=== PATIENT | male | born 2000 | race Two or more races ===

== ENCOUNTER 2020-02-27 14:17 | Outpatient (CLI) | payer OTHER | END 2020-02-27 14:23 | disposition home or self-care (01) | LOC: LAB 14:17 | PROVIDERS: ATTEND General Practice | DX: J11.1 Influenza due to unidentified influenza virus with other respiratory manifestations (principal); R53.81 Other malaise; R05 Cough ==

== ENCOUNTER 2020-02-28 20:24 | Emergency (ER) | payer OTHER ==
[~2020-02-28] VITALS: Ht 165.1 cm; Wt 127.0 kg
== END 2020-02-28 22:48 | disposition home or self-care (01) ==
LOC: ER 20:24
DX: A90 Dengue fever [classical dengue] (principal); Z03.818 Encounter for observation for suspected exposure to other biological agents ruled out

== ENCOUNTER 2021-04-14 09:01 | Emergency (ER) | payer OTHER ==
[~2021-04-14] VITALS: Ht 170.2 cm; Wt 145.1 kg
[2021-04-14] MEDS ORDERED: DICLOFENAC POTA50 MG PO (12:32)
[2021-04-14] MEDS ORDERED: ORPHENADRINE C100 MG PO (12:32)
== END 2021-04-14 12:44 ==
LOC: ER 09:01
DX: S83.8X1A Sprain of other specified parts of right knee, initial encounter (principal); X50.1XXA Overexertion from prolonged static or awkward postures, initial encounter; Y93.67 Activity, basketball; Y92.310 Basketball court as the place of occurrence of the external cause; Y99.8 Other external cause status

== ENCOUNTER 2024-05-13 10:01 | Emergency (ER) | payer OTHER ==
[~2024-05-13] VITALS: Ht 170.2 cm; Wt 152.0 kg
[~2024-05-13 10:01] MED LIST: DICLOFENAC POTA50 MG PO; ORPHENADRINE C100 MG PO
[2024-05-13] MEDS ORDERED: LISINOPRIL5 MG PO (10:35)
[2024-05-13 12:14] LABS: HEMATOCRIT 43.9 % (39.0-48.0); HEMOGLOBIN 15.2 g/dL (13-16.00); MEAN CELL VOLUME 85.8 fL (80.0-100.00); MEAN CORPUSCULAR HEMOGLOBIN 29.6 pg (27.00-32.0); MEAN CORPUSCULAR HGB CONC 34.5 g/dl (32.0-36.0); PLATELET COUNT 311 K/uL (150-450); RED BLOOD COUNT 5.12 M/uL (4.00-6.00); RED CELL DISTRIBUTION WIDTH 13.9 % (11.5-14.5)
== END 2024-05-13 13:28 | disposition home or self-care (01) ==
LOC: ER 10:02 → EMR PED 10:20 → ER 10:20
PROVIDERS: General Practice
DX: A90 Dengue fever [classical dengue] (principal); I10 Essential (primary) hypertension; K76.0 Fatty (change of) liver, not elsewhere classified